=== PATIENT | male | born 1990 | race Two or more races ===

== ENCOUNTER 2017-08-13 07:55 | Day surgery (SDC) | payer OTHER ==
[2017-08-13] MEDS: LR 1,000 ML IV (08:51)
[2017-08-13] MEDS ORDERED: MIDAZOLAM INJ 2 MG/2 ML VIAL (J2250) As Ordered (09:49)
[2017-08-13] MEDS ORDERED: PROPOFOL 200 MG/20 ML VIAL As Ordered (09:49)
[2017-08-13] MEDS ORDERED: ROCURONIUM BROMIDE 50 MG/5 ML VIAL As Ordered (09:49)
[2017-08-13] MEDS ORDERED: DESFLURANE 240 ML INHALANT As Ordered (09:49)
[2017-08-13] MEDS ORDERED: LIDOCAINE 2% INJ 100 MG/5 ML SDV (FOR ANES.) As Ordered (09:49)
[2017-08-13] MEDS ORDERED: fentaNYL 250 MCG/5 ML INJECTION (J3010) As Ordered (09:49)
[2017-08-13] MEDS ORDERED: ePHEDrine SULFATE 25 MG/5 ML(5MG/ML) SYRINGE As Ordered (09:49)
[2017-08-13] MEDS ORDERED: METOCLOPRAMIDE INJ 10MG/2ML VIAL (J2765) As Ordered (09:49)
[2017-08-13] MEDS ORDERED: GLYCOPYRROLATE INJ 0.2 MG/ML 2 ML VIAL As Ordered ×2 (09:50)
[2017-08-13] MEDS ORDERED: NEOSTIGMINE 10 MG/10 ML VIAL (J2710) As Ordered (09:50)
[2017-08-13] MEDS ORDERED: KETOROLAC 60 MG/2 ML VIAL (J1885) As Ordered (09:50)
[2017-08-13] MEDS ORDERED: ONDANSETRON 4MG/2ML VIAL (J2405) As Ordered (09:50)
[2017-08-13] MEDS: BUPIVACAINE HCL 0.25% 30 ML VIAL As Ordered (11:03)
[2017-08-13] MEDS ORDERED: PERCOCET 5MG/325MG TAB As Ordered (11:21)
[2017-08-13] MEDS ORDERED: MEPERIDINE INJ 25 MG/ML VIAL (J2175) As Ordered (11:21)
[2017-08-13] MEDS: MEPERIDINE INJ 25 MG/ML VIAL (J2175) IV ×2 (11:23→11:30)
[2017-08-13] MEDS: PERCOCET 5MG/325MG TAB PO (11:25)
[2017-08-13] MEDS ORDERED: NORCO, ANEXSIA 5/325MG TABLET (HYDROcodone/ACETAMINOPHEN) PO (11:30)
[2017-08-13] MEDS ORDERED: fentaNYL 100 MCG/2 ML INJECTION (J3010) IV (11:30)
[2017-08-13] MEDS ORDERED: ACETAMINOPHEN TAB 650MG DOSE (2X325MG) PO (11:30)
[2017-08-13] MEDS: ONDANSETRON 4MG/2ML VIAL (J2405) IV (11:40)
[2017-08-13] MEDS ORDERED: diphenhydrAMINE INJ 50MG/ML VIAL (J1200) As Ordered (11:48)
[2017-08-13] MEDS: diphenhydrAMINE INJ 50MG/ML VIAL (J1200) IV (11:50)
[2017-08-13] MEDS ORDERED: IBUPROFEN 600 MG TAB PO (16:00)
== END 2017-08-13 14:50 | disposition home or self-care (01) ==
LOC: M SDC 14:50
DX: K40.90 Unilateral inguinal hernia, without obstruction or gangrene, not specified as recurrent (principal); Z87.891 Personal history of nicotine dependence
CPT/HCPCS: 49505